=== PATIENT | female | born 1970 | race Caucasian/White ===

== ENCOUNTER 2018-03-29 15:33 | Emergency (ER) | payer SELFPAY ==
--- NOTE | 2018-03-29 16:00 | PDOC ---
Rapid Medical Evaluation Time Seen by Provider: 03/29/18 15:57 Medical Evaluation: Allergies Allergy/AdvReac Type Severity Reaction Status Date / Time No Known Allergies Allergy Verified 07/31/15 16:54 03/29/18 15:58 Pt presents for R thumb pain. Pt states she caught the finger in the car door. Exam: subungal hematoma to the R thumb Orders: x-ray Pt to proceed to ED for further evaluation Discharge Disposition - Diagnosis Finger pain, right - Referrals Referrals: Mandeep Botello MD [Primary Care Provider] - - Patient Instructions - Post Discharge Activity
[2018-03-29 16:02] VITALS: BP 149/88; PULSE 72; TEMP 98.2; BMI 24.0
--- NOTE | 2018-03-29 16:51 | PDOC ---
History of Present Illness - General Chief Complaint: Injury Stated Complaint: INJURY TO FINGER Time Seen by Provider: 03/29/18 15:57 History Source: Patient Exam Limitations: No Limitations - History of Present Illness Initial Comments: CHIEF COMPLAINT: 47 y/o female c/o right thumb pain after it was slammed in a door today. HISTORY OF PRESENT ILLNESS: The patient states she accidentally slammed her right thumb in a door today. She has a lot of pain and blood under her right thumb. Vital signs on arrival are within normal limits. REVIEW OF SYSTEMS: GENERAL/CONSTITUTIONAL: No fever/chills. No weakness. No weight change. MUSCULOSKELETAL: +right thumb pain. No neck or back pain. SKIN: No rash or easy bruising. NEUROLOGIC: No headache, vertigo, loss of consciousness, or loss of sensation. PHYSICAL EXAM: VITAL_SIGNS: within normal limits GENERAL_APPEARANCE: alert, cooperative, mild obvious discomfort. MENTAL_STATUS: speech clear, oriented X 3, responds appropriately to questions. NEURO: motor intact and sensory intact in injured extremity. EXTREMITIES: No significant swelling, erythema or deformities to right thumb. Full flexion and extension of right thumb. Subungual hematoma to right thumb. SKIN: warm, dry, good color. Past History - Past Medical History Allergies/Adverse Reactions: Allergies Allergy/AdvReac Type Severity Reaction Status Date / Time No Known Allergies Allergy Verified 03/29/18 15:57 Home Medications: Ambulatory Orders NK [No Known Home Medication] 03/29/18 Anemia: No Asthma: No Cancer: No Cardiac Disorders: Yes (PALPITATIONS,IRREGULAR HEARTBEAT) CVA: No COPD: No CHF: No Dementia: No Diabetes: No GI Disorders: No Disorders: No HTN: No Hypercholesterolemia: No Liver Disease: No Seizures: No Thyroid Disease: No - Surgical History Abdominal Surgery: No Appendectomy: No Cardiac Surgery: No Cholecystectomy: No Lung Surgery: No Neurologic Surgery: No - Immunization History Immunization Up to Date: Yes - Suicide/Smoking/Psychosocial Hx Smoking Status: No Smoking History: Never smoked Have you smoked in the past 12 months: No Number of Cigarettes Smoked Daily: 0 Hx Alcohol Use: No Drug/Substance Use Hx: No Substance Use Type: None Hx Substance Use Treatment: No *Physical Exam - Vital Signs Last Vital Signs Temp Pulse Resp BP Pulse Ox 98.2 F 72 16 149/88 98 03/29/18 15:58 03/29/18 15:58 03/29/18 15:58 03/29/18 15:58 03/29/18 15:58 Procedures - Nail Trephination Nail Trephination Location: right thumb Method of Drainage: nail cauterized Sterile Dressing Applied: No Finger Splint: No Medical Decision Making - Medical Decision Making A/P: 47 y/o female with right thumb pain and subungual hematoma after getting finger closed in a door today. Plan is as follows: 1. xray right finger Xray right finger IMPRESSION: No acute fracture or dislocation Used cauterization to release blood and pressure from right thumb. Patient did admit she felt better afterwards. Also gave her PO motrin. Will discharge to home. Suggested ice to thumb. The patient verbalizes understanding of all instructions, has no further questions and is awaiting discharge. *DC/Admit/Observation/Transfer Diagnosis at time of Disposition: Finger pain, right Subungual hematoma of digit of hand Qualifiers: Encounter type: initial encounter Qualified Code(s): S60.10XA - Contusion of unspecified finger with damage to nail, initial encounter - Discharge Dispostion Disposition: HOME Condition at time of disposition: Improved - Referrals Referrals: Mandeep Botello MD [Primary Care Provider] - - Patient Instructions Printed Discharge Instructions: DI for Subungual Hematoma Additional Instructions: Discharge Instructions: -The xray of your finger was negative for broken bones -Please ice the finger to help with swelling or pain -You can take over the counter Motrin for pain as well - Post Discharge Activity
[2018-03-29] MEDS ORDERED: IBUPROFEN 600 MG TABLET (FP) PO ONE ×2 (17:17→17:25)
== END 2018-03-29 17:34 | disposition home or self-care (01) ==
LOC: JERFT 15:33
PROC: 0H9QXZZ Drainage of Finger Nail, External Approach (ICD-10-PCS; principal; 2018-03-29)
DX: S60.111A Contusion of right thumb with damage to nail, initial encounter (principal); V48.4XXA Person boarding or alighting a car injured in noncollision transport accident, initial encounter; Y92.410 Unspecified street and highway as the place of occurrence of the external cause; Y93.89 Activity, other specified; Y99.8 Other external cause status
CPT/HCPCS: 73130-TC-RT-FY; 99281-25

== ENCOUNTER 2018-04-01 15:56 | Emergency (ER) | payer SELFPAY ==
[2018-04-01 16:24] VITALS: BP 153/87; PULSE 60; TEMP 98.7; BMI 24.0
--- NOTE | 2018-04-01 17:27 | PDOC ---
History of Present Illness - General Chief Complaint: Injury Stated Complaint: REVISIT, INJURY Time Seen by Provider: 04/01/18 17:22 - History of Present Illness Initial Comments: 04/01/18 17:25 47-year-old female presents for evaluation of a subungual hematoma. She sustained trauma to her right thumb 4 days ago which treated in the emergency room with trepidation of the thumb but her nailbed remains ecchymotic Past History - Past Medical History Allergies/Adverse Reactions: Allergies Allergy/AdvReac Type Severity Reaction Status Date / Time No Known Allergies Allergy Verified 04/01/18 16:25 Home Medications: Ambulatory Orders NK [No Known Home Medication] 03/29/18 Anemia: No Asthma: No Cancer: No Cardiac Disorders: Yes (PALPITATIONS,IRREGULAR HEARTBEAT) CVA: No COPD: No CHF: No Dementia: No Diabetes: No GI Disorders: No Disorders: No HTN: No Hypercholesterolemia: No Liver Disease: No Seizures: No Thyroid Disease: No - Surgical History Abdominal Surgery: No Appendectomy: No Cardiac Surgery: No Cholecystectomy: No Lung Surgery: No Neurologic Surgery: No - Immunization History Immunization Up to Date: Yes - Suicide/Smoking/Psychosocial Hx Smoking Status: No Smoking History: Never smoked Have you smoked in the past 12 months: No Number of Cigarettes Smoked Daily: 0 Hx Alcohol Use: No Drug/Substance Use Hx: No Substance Use Type: None Hx Substance Use Treatment: No Review of Systems - Review of Systems Musculoskeletal: Yes: See HPI *Physical Exam - Vital Signs Last Vital Signs Temp Pulse Resp BP Pulse Ox 98.7 F 60 16 153/87 04/01/18 16:24 04/01/18 16:24 04/01/18 16:24 04/01/18 16:24 - Physical Exam Comments: 04/01/18 17:25 Right thumb is swollen from the DIP proximally to the tip with associated tenderness there is a subungual hematoma encompassing 100% of the nailbed with a small drill hole at the center of the nail flexor and extended tendon function are well preserved Medical Decision Making - Medical Decision Making 04/01/18 17:26 This is a 4-day-old subungual hematoma which will not respond to any trepanation at this point follow-up with hand surgery for further evaluation and treatment options *DC/Admit/Observation/Transfer Diagnosis at time of Disposition: Subungual hematoma of digit of hand - Discharge Dispostion Disposition: HOME Condition at time of disposition: Stable Decision to Admit order: No - Referrals Referrals: Mandeep Botello MD [Primary Care Provider] - Mandeep Woodard MD [Staff Physician] - - Patient Instructions Printed Discharge Instructions: DI for Subungual Hematoma Additional Instructions: Follow-up with hand surgery in 2-3 days for further evaluation and treatment options. Return to the emergency room she jihad any further issues - Post Discharge Activity
== END 2018-04-01 17:34 | disposition home or self-care (01) ==
LOC: JERFT 15:56
DX: S60.111D Contusion of right thumb with damage to nail, subsequent encounter (principal); V48.4XXD Person boarding or alighting a car injured in noncollision transport accident, subsequent encounter
CPT/HCPCS: 99281-25

== ENCOUNTER 2021-12-20 15:43 | Inpatient (IN) | payer BC ==
[2021-12-20 16:08] VITALS: BMI 24.9
[2021-12-20] MEDS ORDERED: ACETAMINOPHEN 1000 MG/100 ML BAG IVPB ONE (17:08)
[2021-12-20] MEDS ORDERED: ACETAMINOPHEN INJECTION 100 ML IVPB ONE (17:15)
[2021-12-20 17:42] LABS: BASO % 0.3 % (0-2.0); EOS % 1.1 % (0-4.5); HEMATOCRIT 41.8 % (32.4-45.2); HEMOGLOBIN 14.1 GM/dL (10.7-15.3); LYMPH % 22.1 % (8-40); MCH 31.1 pg (25.7-33.7); MCHC 33.7 g/dl (32.0-36.0); MEAN CELL VOLUME 92.4 fl (80-96); MONO % 4.2 % (3.8-10.2); NEUT % 72.3 % (42.8-82.8); PLATELET COUNT 207 10^3/uL (134-434); RBC 4.52 M/mm3 (3.60-5.2); RDW 12.3 % (11.6-15.6); WHITE BLOOD COUNT 6.9 K/mm3 (4.0-10.0)
[2021-12-20 18:05] LABS: ALBUMIN 4.2 g/dl (3.4-5.0); BLOOD UREA NITROGEN 13.1 mg/dL (7-18); CALCIUM 9.6 mg/dL (8.5-10.1)
[2021-12-20 18:08] LABS: CREATININE 0.6 mg/dL (0.55-1.3)
[2021-12-20 18:10] LABS: BILIRUBIN,TOTAL 0.4 mg/dL (0.2-1); TOT PROT 7.8 g/dl (6.4-8.2)
[2021-12-21 07:25] LABS: BASO % 0.6 % (0-2.0); EOS % 3.4 % (0-4.5); HEMATOCRIT 40.3 % (32.4-45.2); HEMOGLOBIN 13.8 GM/dL (10.7-15.3); LYMPH % 43.6 % (8-40); MCH 31.3 pg (25.7-33.7); MCHC 34.1 g/dl (32.0-36.0); MEAN CELL VOLUME 91.8 fl (80-96); MEAN PLT VOLUME 9.3 fl (7.5-11.1); MONO % 6.8 % (3.8-10.2); NEUT % 45.6 % (42.8-82.8); PLATELET COUNT 207 10^3/uL (134-434); RDW 12.2 % (11.6-15.6); WHITE BLOOD COUNT 6.2 K/mm3 (4.0-10.0)
[2021-12-21 07:46] LABS: ALBUMIN 3.7 g/dl (3.4-5.0); CALCIUM 9.5 mg/dL (8.5-10.1)
[2021-12-21 07:49] LABS: CREATININE 0.6 mg/dL (0.55-1.3)
[2021-12-21 07:51] LABS: BILIRUBIN,TOTAL 0.4 mg/dL (0.2-1)
[2021-12-21 07:58] VITALS: TEMP 98.1
[2021-12-21 08:39] LABS: CHOLESTEROL 176 mg/dL (50-200); HDL CHOLESTEROL 54 mg/dL (40-60); LDL CHOLESTEROL (ONLY DFH) 111 mg/dl (5-100); TRIGLYCERIDES 57 mg/dL (0-150)
[2021-12-21] MEDS ORDERED: HEPARIN NA (PORCINE) 5,000 UNITS/ML 1ML VIAL SQ SCH (10:00)
[2021-12-21] MEDS ORDERED: PANTOPRAZOLE 40 MG TABLET PO SCH (10:00)
[2021-12-21] MEDS ORDERED: HEPARIN NA (PORCINE) 5,000 UNITS/ML 1ML VIAL ONE (11:50)
[2021-12-21] MEDS ORDERED: PANTOPRAZOLE 40 MG TABLET PO ONE (11:50)
[2021-12-21 16:42] VITALS: BP 120/78; PULSE 71; RESP 18
== END 2021-12-21 16:45 | disposition home or self-care (01) | DRG 313 ==
LOC: JER 15:43 → JERBED 19:30
PROVIDERS: ADMIT Internal Medicine; ATTEND Internal Medicine
DX: R07.89 Other chest pain (principal); E78.5 Hyperlipidemia, unspecified
CPT/HCPCS: 0241U-QW; 36415; 71045-TC-FY; 80053; 80061; 84484; 85025; 93005; 93010; 93017; 93018; 93306-TC; 99285-25; J1644